=== PATIENT | female | born 1965 | race African-American/Black ===

== ENCOUNTER 2020-02-22 19:15 | Emergency (ER) | payer MEDICAID ==
[~2020-02-22] VITALS: Ht 165.1 cm; Wt 123.0 kg
[~2020-02-22 19:15] MED LIST: ALBU05; [UNRECOGNIZED DRUG - REMARK]
[2020-02-22 19:18] VITALS: BP 126/69
[2020-02-22] MEDS ORDERED: AZITHROMYCIN 500 MG in DEXT 5% WATER 250 ML IV ONE (20:00)
[2020-02-22] MEDS ORDERED: NITROGLYCERIN OINT 1GM/INCH UDPKT TD ONE (20:00)
[2020-02-22] MEDS ORDERED: ONDANSETRON HCL 4MG/2ML INJ IV ONE (20:00)
[2020-02-22] MEDS ORDERED: ASPIRIN 81MG TABLET PO ONE (20:00)
[2020-02-22] MEDS ORDERED: CEFTRIAXONE 1 G PREMIX 50 ML IV ONE (20:00)
[2020-02-22] MEDS ORDERED: ACETAMINOPHEN 325MG TABLET PO ONE (20:00)
[2020-02-22] MEDS ORDERED: FUROSEMIDE 40MG/4ML VIAL IV ONE (20:00)
== END 2020-02-22 20:00 | disposition left against medical advice (07) ==
LOC: ER 19:15 → CANBEDREQ 22:47
DX: R50.9 Fever, unspecified (principal); R06.02 Shortness of breath; E11.9 Type 2 diabetes mellitus without complications; I10 Essential (primary) hypertension; Z53.29 Procedure and treatment not carried out because of patient's decision for other reasons
CPT/HCPCS: 93005; 99283; J0456; J7060

== ENCOUNTER 2022-08-11 00:54 | Inpatient (IN) | payer MEDICAID ==
[~2022-08-11] VITALS: Ht 170.2 cm; Wt 122.0 kg
[2022-08-11] MEDS ORDERED: IPRATROPIUM BROMIDE (0.02%) 0.5MG/2.5ML NEB HHN STA (01:14)
[2022-08-11] MEDS ORDERED: METHYLPREDNISOLONE SOD SUCC 125 MG/2 ML VIAL IV STA (01:14)
[2022-08-11] MEDS ORDERED: ALBUTEROL (0.083%) 2.5MG/3ML NEB HHN STA (01:14)
[2022-08-11] MEDS ORDERED: NITROGLYCERIN 0.4MG TABLET SL SL PRN (01:15)
[2022-08-11] MEDS ORDERED: ASPIRIN 81MG TABLET PO ONE (01:15)
[2022-08-11] MEDS ORDERED: MAGNESIUM 2 G PREMIX 50 ML IV ONE (01:15)
[2022-08-11 01:49] LABS: BASOPHILS % 0.7 % (0.0-2.0); EOSINOPHILS % 0.5 % (0.0-5.0); HEMATOCRIT. 39.3 % (36.0-48.0); HEMOGLOBIN. 12.9 g/dL (12.0-16.0); LYMPHOCYTES % 20.8 % (20.0-50.0); MEAN CORPUSCULAR HEMOGLOBIN 29.1 pg (28.0-32.0); MEAN CORPUSCULAR VOLUME 88.7 fL (81.0-99.0); MEAN PLATELET VOLUME 10.2 fl (7.4-10.4); MONOCYTES % 9.1 % (2.0-8.0); NEUTROPHILS % 68.9 % (40.0-76.0); PLATELET 190 x1000/uL (130-400); RED BLOOD CELL COUNT 4.44 mill/uL (4.2-5.4); RED CELL DISTRIBUTION WIDTH 13.4 % (11.6-14.6)
[2022-08-11 01:57] LABS: CHLORIDE 102 mEq/L (98-107)
[2022-08-11 01:58] LABS: PROTHROMBIN TIME 10.9 sec (9.6-11.0)
[2022-08-11] MEDS: FUROSEMIDE 100MG/10ML VIAL IVP ONE ×2 (03:45→04:30)
[2022-08-11] MEDS: HYDRALAZINE 20MG/ML VIAL IV PRN ×4 (05:37→17:20)
[2022-08-11] MEDS ORDERED: INSULIN REGULAR (HUMULIN R) 300UNITS/3ML VIAL SUBCUT NR (06:45)
[2022-08-11] MEDS ORDERED: INSULIN LISPRO 100 UNITS/ML SUBCUT STA (09:14)
[2022-08-11] MEDS ORDERED: FUROSEMIDE 100MG/10ML VIAL IVP SCH (10:30)
[2022-08-11] MEDS ORDERED: DEXTROSE 50% WATER 50ML SYRINGE IV PRN (10:45)
[2022-08-11] MEDS ORDERED: INSULIN GLARGINE 100 UNITS/ML SUBCUT NR (10:45)
[2022-08-11] MEDS ORDERED: ONDANSETRON HCL 4MG/2ML INJ IV PRN (10:45)
[2022-08-11] MEDS ORDERED: ACETAMINOPHEN 325MG TABLET PO PRN (10:45)
[2022-08-11] MEDS: BLOOD SUGAR DIAGNOSTIC STRIP TEST SCH ×3 (12:18→21:00)
[2022-08-11 12:28] VITALS: BP 148/88
[2022-08-11] MEDS ORDERED: SACU1TAB PO (13:11)
[2022-08-11] MEDS ORDERED: ESOM40CA53 PO (13:11)
[2022-08-11] MEDS ORDERED: AMLO5TAB88 PO (13:11)
[2022-08-11] MEDS ORDERED: ASPI-1406 PO (13:11)
[2022-08-11] MEDS ORDERED: ATOR10TA69 PO (13:11)
[2022-08-11] MEDS ORDERED: CARV25TA47 PO (13:11)
[2022-08-11] MEDS ORDERED: GABA-533 PO (13:11)
[2022-08-11] MEDS ORDERED: LOSA50TA41 PO (13:11)
[2022-08-11] MEDS ORDERED: DULO40CA2 PO (13:11)
[2022-08-11] MEDS ORDERED: BUME1TAB8 PO (13:11)
[2022-08-11] MEDS ORDERED: ERGO1250 PO (13:11)
[2022-08-11] MEDS ORDERED: DULO20CA18 PO (13:11)
[2022-08-11] MEDS: BUMETANIDE 1MG/4ML VIAL IV SCH (13:44)
[2022-08-11] MEDS: INSULIN LISPRO 100 UNITS/ML SUBCUT SCH ×3 (13:47→22:28)
[2022-08-11 14:00] VITALS: BP 152/85
[2022-08-11 16:00] VITALS: BP 167/100
[2022-08-11 20:01] VITALS: BP 149/80
[2022-08-11] MEDS: IPRATROPIUM/ALBUTEROL 0.5-3(2.5)MG/3ML NEB HHN SCH (20:44)
[2022-08-11 22:19] VITALS: BP 157/94
[2022-08-11] MEDS: INSULIN GLARGINE 100 UNITS/ML SUBCUT SCH (22:28)
[2022-08-12] MEDS ORDERED: HYDROCODONE/ACETAMINOPHEN 5/325MG TABLET PO PRN (00:30)
[2022-08-12] MEDS ORDERED: NALOXONE HCL 0.4MG/ML VIAL IV PRN (00:45)
[2022-08-12] MEDS: ZOLPIDEM TARTRATE 5MG TABLET PO PRN ×2 (01:07→22:22)
[2022-08-12] MEDS: IPRATROPIUM/ALBUTEROL 0.5-3(2.5)MG/3ML NEB HHN SCH ×4 (02:31→20:26)
[2022-08-12] MEDS ORDERED: GABAPENTIN 300MG CAPSULE PO SCH (06:00)
[2022-08-12] MEDS: BLOOD SUGAR DIAGNOSTIC STRIP TEST SCH ×4 (07:01→21:00)
[2022-08-12] MEDS: INSULIN LISPRO 100 UNITS/ML SUBCUT SCH ×5 (07:13→22:27)
[2022-08-12 07:21] LABS: CHLORIDE 105 mEq/L (98-107)
[2022-08-12 08:00] VITALS: BP 149/71
[2022-08-12] MEDS: BUMETANIDE 1MG/4ML VIAL IV SCH (09:04)
[2022-08-12] MEDS: INSULIN GLARGINE 100 UNITS/ML SUBCUT SCH (09:05)
[2022-08-12 12:04] VITALS: BP 145/86
[2022-08-12] MEDS: POTASSIUM CHLORIDE 20MEQ TABLET SR PO SCH (12:44)
[2022-08-12] MEDS: GABAPENTIN 400MG CAPSULE PO SCH ×2 (13:28→22:22)
[2022-08-12] MEDS ORDERED: INSULIN LISPRO 100 UNITS/ML SUBCUT NR (13:30)
[2022-08-12 16:03] VITALS: BP 116/63
[2022-08-12] MEDS ORDERED: INSULIN LISPRO 100 UNITS/ML SUBCUT SCH (16:50)
[2022-08-12 20:00] VITALS: BP 142/74
[2022-08-12 21:14] LABS: CLARITY URINE CLOUDY (CLEAR); COLOR URINE YELLOW (YELLOW); KETONES URINE TRACE (NEGATIVE); LEUKOCYTE ESTERASE URINE TRACE (NEGATIVE); NITRITE URINE NEGATIVE (NEGATIVE); OCCULT BLOOD URINE NEGATIVE (NEGATIVE); PROTEIN URINE 1+ (NEGATIVE); SPECIFIC GRAVITY URINE 1.014 (1.005-1.030); UROBILINOGEN URINE 0.2 E.U./dL (0.2-1.0)
[2022-08-12 21:37] LABS: *AMPHETAMINES SCREEN URINE NEGATIVE (NEGATIVE); *BARBITURATES SCREEN URINE NEGATIVE (NEGATIVE); *BENZODIAZEPINES SCREEN URINE NEGATIVE (NEGATIVE); *COCAINE SCREEN URINE NEGATIVE (NEGATIVE); CANNABINOID URINE SCREEN NEGATIVE (NEGATIVE); METHADONE URINE SCREEN NEGATIVE (NEGATIVE); OPIATES URINE SCREEN NEGATIVE (NEGATIVE); PHENCYCLIDINE URINE SCREEN NEGATIVE (NEGATIVE)
[2022-08-12] MEDS ORDERED: INSULIN GLARGINE 100 UNITS/ML SUBCUT SCH (22:00)
[2022-08-12] MEDS: TRAZODONE HCL 50MG TABLET PO SCH (22:23)
[2022-08-12] MEDS: CARVEDILOL 6.25 MG TABLET PO SCH (22:24)
[2022-08-13] VITALS: BP 97/54
[2022-08-13 04:00] VITALS: BP 104/60
[2022-08-13] MEDS: GABAPENTIN 400MG CAPSULE PO SCH ×3 (06:02→22:55)
[2022-08-13] MEDS: BLOOD SUGAR DIAGNOSTIC STRIP TEST SCH ×4 (06:43→21:00)
[2022-08-13] MEDS: INSULIN LISPRO 100 UNITS/ML SUBCUT SCH ×5 (06:43→21:00)
[2022-08-13] MEDS ORDERED: METOLAZONE 2.5MG TABLET PO NR (07:30)
[2022-08-13] MEDS: IPRATROPIUM/ALBUTEROL 0.5-3(2.5)MG/3ML NEB HHN SCH ×4 (07:55→20:36)
[2022-08-13 08:04] VITALS: BP 107/73
[2022-08-13] MEDS: POTASSIUM CHLORIDE 20MEQ TABLET SR PO SCH (08:44)
[2022-08-13] MEDS: BUMETANIDE 1MG/4ML VIAL IV SCH (08:44)
[2022-08-13] MEDS: CARVEDILOL 6.25 MG TABLET PO SCH ×2 (08:44→21:12)
[2022-08-13 12:04] VITALS: BP 110/58
[2022-08-13] MEDS: INSULIN GLARGINE 100 UNITS/ML SUBCUT SCH ×2 (13:00→22:00)
[2022-08-13 16:00] VITALS: BP 130/73
[2022-08-13 20:00] VITALS: BP 122/69
[2022-08-13] MEDS: TRAZODONE HCL 50MG TABLET PO SCH (21:12)
[2022-08-14] VITALS: BP 128/61
[2022-08-14] MEDS: IPRATROPIUM/ALBUTEROL 0.5-3(2.5)MG/3ML NEB HHN SCH ×2 (03:18→09:37)
[2022-08-14 04:00] VITALS: BP 135/66
[2022-08-14] MEDS: BLOOD SUGAR DIAGNOSTIC STRIP TEST SCH ×2 (06:23→11:50)
[2022-08-14] MEDS: GABAPENTIN 400MG CAPSULE PO SCH ×2 (06:23→13:22)
[2022-08-14] MEDS: INSULIN LISPRO 100 UNITS/ML SUBCUT SCH ×2 (06:47→13:23)
[2022-08-14] MEDS: BUMETANIDE 1MG/4ML VIAL IV SCH (09:00)
[2022-08-14] MEDS: POTASSIUM CHLORIDE 20MEQ TABLET SR PO SCH (09:00)
[2022-08-14] MEDS: CARVEDILOL 6.25 MG TABLET PO SCH (09:01)
[2022-08-14] MEDS: INSULIN GLARGINE 100 UNITS/ML SUBCUT SCH (09:01)
[2022-08-14 11:13] LABS: BASOPHILS % 0.3 % (0.0-2.0); EOSINOPHILS % 2.2 % (0.0-5.0); HEMATOCRIT. 44.1 % (36.0-48.0); HEMOGLOBIN. 14.3 g/dL (12.0-16.0); LYMPHOCYTES % 23.7 % (20.0-50.0); MEAN CORPUSCULAR HEMOGLOBIN 28.7 pg (28.0-32.0); MEAN CORPUSCULAR VOLUME 88.6 fL (81.0-99.0); MONOCYTES % 8.8 % (2.0-8.0); PLATELET 223 x1000/uL (130-400); RED BLOOD CELL COUNT 4.97 mill/uL (4.2-5.4); RED CELL DISTRIBUTION WIDTH 13.4 % (11.6-14.6)
[2022-08-14 12:00] VITALS: BP 153/72
[2022-08-14 12:33] VITALS: BP 135/66
== END 2022-08-14 18:53 | disposition home or self-care (01) | DRG 194 ==
LOC: ER 00:54 → 3WST 04:42 → ENRESERV 08:12 → CANRESERV 08:12 → EDBEDREQSVC 10:03 → ENRESERV 11:41
PROVIDERS: ADMIT Internal Medicine; ATTEND Internal Medicine
DX: I11.0 Hypertensive heart disease with heart failure (principal); J96.00 Acute respiratory failure, unspecified whether with hypoxia or hypercapnia; I50.23 Acute on chronic systolic (congestive) heart failure; I42.9 Cardiomyopathy, unspecified; E11.65 Type 2 diabetes mellitus with hyperglycemia; Z20.822 Contact with and (suspected) exposure to COVID-19; F31.9 Bipolar disorder, unspecified; I44.7 Left bundle-branch block, unspecified; I16.0 Hypertensive urgency; F43.21 Adjustment disorder with depressed mood; J44.9 Chronic obstructive pulmonary disease, unspecified; E87.6 Hypokalemia; E66.01 Morbid (severe) obesity due to excess calories; Z91.199 Patient's noncompliance with other medical treatment and regimen due to unspecified reason; Z79.899 Other long term (current) drug therapy; Z68.41 Body mass index [BMI] 40.0-44.9, adult
CPT/HCPCS: 36415; 71045; 80048; 80053; 80305; 81003; 82962; 83880; 84484; 85025; 87426; 87804; 93005; 93306; 94618; 94640; 99291; A6261; C9803; J0360; J1815; J1940; J2930; J3475; J3490

== ENCOUNTER 2022-09-27 21:46 | Emergency (ER) | payer MEDICAID ==
[~2022-09-27] VITALS: Ht 167.6 cm; Wt 102.0 kg
[~2022-09-27 21:46] MED LIST changes: +AMLO5TAB88 PO; +ASPI-1406 PO; +ATOR10TA69 PO; +BUME1TAB8 PO; +CARV25TA47 PO; +DULO20CA18 PO; +DULO40CA2 PO; +ERGO1250 PO; +ESOM40CA53 PO; +GABA-533 PO; +LOSA50TA41 PO; +SACU1TAB PO
[2022-09-27 21:53] VITALS: BP 140/70
== END 2022-09-27 23:58 | disposition left against medical advice (07) ==
LOC: ER 22:00
DX: Z53.21 Procedure and treatment not carried out due to patient leaving prior to being seen by health care provider (principal)
CPT/HCPCS: 99281

== ENCOUNTER 2022-11-13 21:13 | Emergency (ER) | payer MEDICAID, OTHER ==
[~2022-11-13] VITALS: Ht 170.2 cm; Wt 108.9 kg
[2022-11-13] MEDS: KETOROLAC 30MG/ML VIAL IV STA (22:48)
[2022-11-14 05:39] LABS: CHLORIDE 110 mEq/L (98-107)
[2022-11-14 05:42] LABS: BASOPHILS % 0.8 % (0.0-2.0); EOSINOPHILS % 8.7 % (0.0-5.0); HEMATOCRIT. 29.2 % (36.0-48.0); HEMOGLOBIN. 9.3 g/dL (12.0-16.0); LYMPHOCYTES % 36.1 % (20.0-50.0); MEAN CORPUSCULAR VOLUME 88.1 fL (81.0-99.0); MEAN PLATELET VOLUME 8.5 fl (7.4-10.4); MONOCYTES % 7.7 % (2.0-8.0); NEUTROPHILS % 46.7 % (40.0-76.0); PLATELET 228 x1000/uL (130-400); RED BLOOD CELL COUNT 3.31 mill/uL (4.2-5.4); RED CELL DISTRIBUTION WIDTH 15.9 % (11.6-14.6)
[2022-11-14 05:50] LABS: PROTHROMBIN TIME 10.3 sec (9.6-11.0)
[2022-11-14] MEDS: KETOROLAC 30MG/ML VIAL IV STA (06:26)
[2022-11-14] MEDS ORDERED: KETOROLAC 30MG/ML VIAL IV NR (06:30)
[2022-11-14 12:25] VITALS: BP 135/90
== END 2022-11-14 12:28 | disposition home or self-care (01) ==
LOC: ER 21:13 → EDBEDREQTM 11-14 10:28 → EDBEDREQ 11-14 10:28 → CANBEDREQ 11-14 10:57 → ER 11-14 12:28
DX: T85.520A Displacement of bile duct prosthesis, initial encounter (principal); R10.11 Right upper quadrant pain; J45.909 Unspecified asthma, uncomplicated; I11.0 Hypertensive heart disease with heart failure; I50.9 Heart failure, unspecified; E11.9 Type 2 diabetes mellitus without complications; F32.A Depression, unspecified; M19.90 Unspecified osteoarthritis, unspecified site; Z20.822 Contact with and (suspected) exposure to COVID-19; Z88.5 Allergy status to narcotic agent; Z88.8 Allergy status to other drugs, medicaments and biological substances; Z79.82 Long term (current) use of aspirin; Y92.89 Other specified places as the place of occurrence of the external cause
CPT/HCPCS: 36415; 74176; 80053; 83690; 85025; 85610; 87426; 96374; 99285; C9803; J1885